=== PATIENT | female | born 1995 | race Caucasian/White ===

== ENCOUNTER 2016-08-21 22:21 | Emergency (ER) | payer SELFPAY ==
[~2016-08-21] VITALS: Ht 157.5 cm; Wt 86.2 kg
[2016-08-21] MEDS ORDERED: KETOROLAC 60 MG/2 ML VIAL IM ONE (23:00)
[2016-08-21] MEDS ORDERED: ONDANSETRON 4 MG (ZOFRAN) ORAL DISSOLVE TAB PO ONE (23:00)
[2016-08-21 23:49] LABS: BILIRUBIN,URINE NEGATIVE (NEGATIVE); KETONES,URINE NEGATIVE (NEGATIVE); LEUKOCYTE ESTERASE ,URINE 2+ (NEGATIVE); NITRITE,URINE NEGATIVE (NEGATIVE); PH,URINE 8 (5-9); PROTEIN,URINE NEGATIVE (NEGATIVE); UROBILINOGEN,URINE NORMAL (NORMAL)
[2016-08-22] MEDS ORDERED: RX-TRAMADOL 50 MG (ULTRAM) TAB PPK#4 PO STA (00:02)
[2016-08-22] MEDS ORDERED: RX-ONDANSETRON 4 MG ODT (ZOFRAN) PPK #4 PO STA (00:02)
--- NOTE | 2016-08-22 00:09 | ED General ---
General Chief Complaint: Cough/Cold/Flu Symptoms Stated Complaint: HEADACHE/CONGESTION Nursing Triage Note: HEADACHE, SINUS CONGESTION [id number]. WORSE LAST 2 WEEKS Nursing Sepsis Screen: No Definite Risk Source of Information: Patient Exam Limitations: No Limitations History of Present Illness Time Seen by Provider: 22:38 Initial Comments This 21-year-old woman presents to the emergency room with complaints of recurrent intense headaches intermittently over the last 6 months. She reports having right-sided ear and neck pain as well. She reports just moving here from [facility]. She has lived in the [facility] for about one week and has not established with a local provider. She has not taken any medications for her headache. She reports associated nausea. She also has some abdominal cramping. Last menstrual period was August 04. She does not take any control. She reports no vomiting or diarrhea. She is presently homeless. Allergies and Home Medications Allergies Coded Allergies: No Known Drug Allergies (Unverified , 08/21/16) Home Medications Amoxicillin 500 Mg Tablet, 1,000 MG PO BID, #40 Prescribed by: RAJWINDER PEÑA on 08/22/16 0010 Constitutional: no symptoms reported EENTM: see HPI Respiratory: no symptoms reported Cardiovascular: no symptoms reported Gastrointestinal: see HPI Genitourinary: no symptoms reported : No LMP: Aug 04, 2016 Musculoskeletal: no symptoms reported Skin: no symptoms reported Psychiatric/Neurological: See HPI Hematologic/Lymphatic: No Symptoms Reported Past Tbejtmw-Msdmga-Czowwd Hx Patient Social History Alcohol Use: Denies Use Recreational Drug Use: No Smoking Status: Current Everyday Smoker Type Used: Cigarettes 2nd Hand Smoke Exposure: Yes Recent Foreign Travel: No Contact w/Someone Who Travel: No Recent Infectious Disease Expo: No Recent Hopitalizations: No Immunizations Up To Date Tetanus Booster (TDap): Unknown Seasonal Allergies Seasonal Allergies: No Surgeries HX Surgeries: No Respiratory Hx Respiratory Disorders: No Cardiovascular Hx Cardiac Disorders: No Neurological Hx Neurological Disorders: Yes Neurological Disorders: Headaches /Migraines Reproductive System : No Hx : 1 Hx Para: 1 Genitourinary Hx Genitourinary Disorders: No Gastrointestinal Hx Gastrointestinal Disorders: Yes Gastrointestinal Disorders: Chronic Constipation Musculoskeletal Hx Musculoskeletal Disorders: Yes (sciatica) Musculoskeletal Disorders: Chronic Back Pain HEENT HX ENT Disorders: No Cancer Hx Cancer: No Psychosocial Hx Psychiatric Problems: No Physical Exam Vital Signs Vital Sign - Last 12Hours 08/21/16 22:35 Temp 97.5 Pulse 61 Resp 18 B/P (MAP) 145/97 Pulse Ox 97 O2 Delivery Room Air Capillary Refill : Less Than 3 Seconds General Appearance: No Apparent Distress, WD/WN HEENT: PERRL/EOMI, Normal ENT Inspection, TM Abnormal (R) (erythematous TM) Neck: Normal Inspection, Supple, No Lymphadenopathy (L), No Lymphadenopathy (R) Respiratory: Lungs Clear, Normal Breath Sounds, No Accessory Muscle Use, No Respiratory Distress Cardiovascular: Regular Rate, Rhythm, No Edema, No Murmur Gastrointestinal: Normal Bowel Sounds, Non Tender, Soft Extremity: Normal Inspection, No Pedal Edema Neurologic/Psychiatric: Alert, Oriented x3, No Motor/Sensory Deficits, Normal Mood/Affect, desk director II-XII Norm as Tested Skin: Normal Color, Warm/Dry Progress/Results/Core Measures Results/Orders Lab Results Laboratory Tests Test 08/21/16 23:40 Range/Units Urine Color YELLOW Urine Clarity CLEAR Urine pH 8 5-9 Urine Specific [place] 1.010 L 1.016-1.022 Urine Protein NEGATIVE NEGATIVE Urine Glucose (UA) NEGATIVE NEGATIVE Urine Ketones NEGATIVE NEGATIVE Urine Nitrite NEGATIVE NEGATIVE Urine Bilirubin NEGATIVE NEGATIVE Urine Urobilinogen NORMAL NORMAL MG/DL Urine Leukocyte Esterase 2+ H NEGATIVE Urine RBC (Auto) NEGATIVE NEGATIVE Urine RBC NONE /HPF Urine WBC NONE /HPF Urine Squamous Epithelial Cells 2-5 /HPF Urine Crystals NONE /LPF Urine Amorphous Sediment FEW JUAN PHOSPHATE H /LPF Urine Bacteria NEGATIVE /HPF Urine Casts NONE /LPF Urine Mucus NEGATIVE /LPF Urine Culture Indicated NO My Orders Orders - RAJWINDER CHIN MD Ketorolac Injection (Toradol Injection) (08/21/16 23:00) Ondansetron Oral Dissolve Tab (Zofran (08/21/16 23:00) Ua Culture If Indicated (08/21/16 22:48) Urine Bedside (08/21/16 22:48) Rx-Tramadol Hcl (Rx-Ultram) (08/22/16 00:02) Rx-Ondansetron Po (Rx-Zofran Po) (08/22/16 00:02) Amoxicillin Capsule (Polymox Capsule) (08/22/16 00:15) Medications Given in ED Current Medications Medications Dose Ordered Sig/Gena Route Start Time Stop Time Status Last Admin Dose Admin Amoxicillin 1,000 mg ONCE ONCE PO 08/22/16 00:15 08/22/16 00:15 DC 08/22/16 00:06 1,000 MG Ketorolac Tromethamine 60 mg ONCE ONCE IM 08/21/16 23:00 08/21/16 23:01 DC 08/21/16 23:43 60 MG Ondansetron HCl 8 mg ONCE ONCE PO 08/21/16 23:00 08/21/16 23:01 DC 08/21/16 23:40 8 MG Vital Signs/I&O Vital Sign - Last 12Hours 08/21/16 08/21/16 08/22/16 22:35 22:35 00:14 Temp 97.5 97.0 Pulse 61 62 Resp 18 18 B/P (MAP) 145/97 Pulse Ox 97 99 O2 Delivery Room Air Room Air Room Air Blood Pressure Mean: 113 Point of Care Testing Urine -Bedside: Negative Progress Note : Progress Note Patient was treated with sublingual Zofran and a Toradol injection. She reported some residual headache which was treated with a take-home packet of tramadol. The first dose of amoxicillin for treatment of otitis media was given prior to dismissal. Departure Impression Impression: Primary Impression: Headache Qualified Codes: R51 - Headache Additional Impressions: Nausea Right otitis media Qualified Codes: H66.91 - Otitis media, unspecified, right ear Homeless Disposition: 01 HOME, SELF-CARE Condition: Improved Departure-Patient Inst. Decision time for Depature: 00:05 Referrals: NO,LOCAL PHYSICIAN (PCP/Family) Primary Care Physician Patient Instructions: Headache, Adult Add. Discharge Instructions: Complete your antibiotic as prescribed. Use Zofran (ondansetron) dissolved under the tongue every 4 hours as needed for nausea and vomiting. Use Tylenol and ibuprofen for headache. Use Ultram (tramadol) every 6 hours as needed for pain not controlled by Tylenol and ibuprofen. Establish with a primary care provider in follow-up as soon as possible. All discharge instructions reviewed with patient and/or family. Voiced understanding. Scripts Amoxicillin (Amoxicillin) 500 Mg Tablet 1000 MG PO BID, #40 TAB Prov: RAJWINDER CHIN MD 08/22/16 RAJWINDER CHIN MD Aug 22, 2016 00:09
[2016-08-22] MEDS ORDERED: AMOX500T2 PO (00:10)
[2016-08-22 00:14] VITALS: BP 136/87
[2016-08-22] MEDS ORDERED: AMOXICILLIN 500 MG (POLYMOX) CAP PO ONE (00:15)
== END 2016-08-22 00:14 | disposition home or self-care (01) ==
LOC: ER 22:24
DX: H66.91 Otitis media, unspecified, right ear (principal); F17.210 Nicotine dependence, cigarettes, uncomplicated; Z32.02 Encounter for pregnancy test, result negative
CPT/HCPCS: 81000; 84703; 99283

== ENCOUNTER 2016-09-14 04:43 | Emergency (ER) | payer SELFPAY ==
[~2016-09-14] VITALS: Ht 160 cm; Wt 86.2 kg
[~2016-09-14 04:43] MED LIST: AMOX500T2 PO
[2016-09-14] MEDS ORDERED: predniSONE 20 MG TAB PO ONE (05:30)
[2016-09-14] MEDS ORDERED: KETOROLAC 60 MG/2 ML VIAL IM ONE (05:30)
--- NOTE | 2016-09-14 05:40 | ED Headache ---
General Chief Complaint: Head/Cervical Problems Stated Complaint: HEADACHE,NERVE PAIN IN LEGS,BACK & FEET Nursing Triage Note: c/o headache and 'sciatic' pain, denies taking medication for pain Nursing Sepsis Screen: No Definite Risk Source: patient Exam Limitations: no limitations Allergies and Home Medications Allergies Coded Allergies: No Known Drug Allergies (Unverified , 08/21/16) Home Medications Amoxicillin 500 Mg Tablet, 1,000 MG PO BID, #40 Prescribed by: RAJWINDER PEÑA on 08/22/16 0010 Past Thwhmuy-Wzqaiv-Mmvqii Hx Patient Social History Alcohol Use: Denies Use Recreational Drug Use: No Smoking Status: Current Everyday Smoker Type Used: Cigarettes 2nd Hand Smoke Exposure: Yes Recent Foreign Travel: No Contact w/Someone Who Travel: No Recent Infectious Disease Expo: No Recent Hopitalizations: No Immunizations Up To Date Tetanus Booster (TDap): Unknown Seasonal Allergies Seasonal Allergies: No Surgeries HX Surgeries: No Respiratory Hx Respiratory Disorders: No Cardiovascular Hx Cardiac Disorders: No Neurological Hx Neurological Disorders: Yes Neurological Disorders: Headaches /Migraines Genitourinary Hx Genitourinary Disorders: No Gastrointestinal Hx Gastrointestinal Disorders: Yes Gastrointestinal Disorders: Chronic Constipation Musculoskeletal Hx Musculoskeletal Disorders: Yes (sciatica) Musculoskeletal Disorders: Chronic Back Pain HEENT HX ENT Disorders: No Cancer Hx Cancer: No Psychosocial Hx Psychiatric Problems: No Physical Exam Vital Signs Vital Sign - Last 12Hours 09/14/16 04:50 Temp 96.8 Pulse 70 Resp 18 B/P (MAP) 120/77 Pulse Ox 96 Capillary Refill : Less Than 3 Seconds Progress/Results/Core Measures Results/Orders My Orders Orders - RAJWINDER CHIN MD Ketorolac Injection (Toradol Injection) (09/14/16 05:30) Prednisone Tablet (Deltasone Tablet) (09/14/16 05:30) Urine Bedside (09/14/16 05:40) Medications Given in ED Current Medications Medications Dose Ordered Sig/Gena Route Start Time Stop Time Status Last Admin Dose Admin Ketorolac Tromethamine 60 mg ONCE ONCE IM 09/14/16 05:30 09/14/16 05:31 DC 09/14/16 05:40 60 MG Prednisone 20 mg ONCE ONCE PO 09/14/16 05:30 09/14/16 05:31 DC 09/14/16 05:40 20 MG Vital Signs/I&O Vital Sign - Last 12Hours 09/14/16 04:50 Temp 96.8 Pulse 70 Resp 18 B/P (MAP) 120/77 Pulse Ox 96 Blood Pressure Mean: 91 Departure Impression Impression: Primary Impression: Acute headache Qualified Codes: R51 - Headache Additional Impression: Sacroiliitis Disposition: 01 HOME, SELF-CARE Condition: Improved Departure-Patient Inst. Decision time for Depature: 05:44 Referrals: NO,LOCAL PHYSICIAN (PCP/Family) Primary Care Physician Patient Instructions: Headache, Adult, Sacroiliac Joint Pain Add. Discharge Instructions: You may take ibuprofen up to 800 mg every 8 hours as needed for pain. Add Tylenol (acetaminophen) up to 1000 mg every 6 hours as needed for additional pain relief. Consider establishing care at the [facility] as they have a sliding scale payment plan. Their phone number is [phone]. Return to the ER if you have significantly worsening symptoms. All discharge instructions reviewed with patient and/or family. Voiced understanding. Scripts Prednisone (Prednisone) 20 Mg Tab 20 MG PO DAILY, #3 TAB Prov: RAJWINDER CHIN MD 09/14/16 RAJWINDER CHIN MD Sep 14, 2016 05:39
[2016-09-14] MEDS ORDERED: PRD20T PO (05:47)
[2016-09-14 05:56] VITALS: BP 118/72
== END 2016-09-14 05:56 | disposition home or self-care (01) ==
LOC: EDUNIT# 04:43 → ER 04:47
DX: R51 Headache (principal); M46.1 Sacroiliitis, not elsewhere classified; F17.210 Nicotine dependence, cigarettes, uncomplicated
CPT/HCPCS: 84703; 99284